=== PATIENT | male | born 2000 | race Caucasian/White ===

== ENCOUNTER 2021-02-18 12:27 | Emergency (ER) | payer MEDICARE ==
[2021-02-18 13:21] LABS: BUN/CREAT RATIO (CALC) 11.9 RATIO; CREATININE 1.01 mg/dL (0.67-1.17); POTASSIUM 3.9 mmol/L (3.5-5.1)
[2021-02-18 13:28] LABS: BASOPHIL 0.5 % (0-2); EOSINOPHIL 0 % (0-5); HCT 44.5 % (42.0-52.0); HGB 15.5 g/dl (13.2-18.0); LYMPHOCYTE 20.9 % (15-48); MCHC 34.8 g/dL (32.0-36.0); MCV 91.8 fL (78.0-100.0); MPV 10.2 fL (6.0-9.5); NEUTROPHIL 57.6 % (41-80); NRBC 0; PLT 147 K/uL (150-400); RBC 4.85 M/uL (4.70-6.00); RDW 11.5 % (11.5-14.0); WBC 3.9 K/uL (4.0-10.5)
[2021-02-18 13:31] LABS: MONOCYTE 20.7 % (0-12)
[2021-02-18] MEDS ORDERED: MEDROL 4MG DOSEP4 MG PO (13:49)
[2021-02-18] MEDS ORDERED: VENTOLIN HFA IN18 GM INH (13:49)
== END 2021-02-18 14:20 | disposition home or self-care (01) ==
LOC: FER 12:27
PROVIDERS: Nurse Practitioner Family
DX: U07.1 COVID-19 (principal)
CPT/HCPCS: 36415; 71045; 80048; 85025; 93005; J7030

== ENCOUNTER 2021-03-17 21:15 | Emergency (ER) | payer OTHER ==
[~2021-03-17 21:15] MED LIST: MEDROL 4MG DOSEP4 MG PO; VENTOLIN HFA IN18 GM INH
== END 2021-03-18 02:14 | disposition left against medical advice (07) ==
LOC: FER 21:15
DX: Z53.8 Procedure and treatment not carried out for other reasons (principal)
CPT/HCPCS: 93005

== ENCOUNTER 2021-04-24 17:13 | Emergency (ER) | payer OTHER ==
[2021-04-24] MEDS ORDERED: NAPROXEN500 MG PO (18:59)
== END 2021-04-24 19:15 | disposition home or self-care (01) ==
LOC: FER 17:13
DX: M71.21 Synovial cyst of popliteal space [Baker], right knee (principal); F17.290 Nicotine dependence, other tobacco product, uncomplicated
CPT/HCPCS: 93971